=== PATIENT | male | born 1955 | race Caucasian/White ===

== ENCOUNTER 2021-08-27 02:35 | Observation (INO) | payer MEDICARE, BC ==
[~2021-08-27] VITALS: Ht 182.9 cm; Wt 123.3 kg
[~2021-08-27 02:35] MED LIST: ASPIR-LOW81 MG PO; AVAPRO300 M1 PO; AVAPRO300 MG PO; FERROUS SU325 MG/TAB PO; FOLIC ACID 40400 MCG PO; FOLIC ACID PO; IRON325 M1 PO; LEXAPRO 10MG10 MG PO; NASACORT AQ N16.5 GM NS; NORVASC 10MG10 MG PO; NORVASC10 MG PO; VITAMIN C BUFF500 MG PO; VITAMIN C250250 MG PO; ZIAC 10/6.25M1 UDTAB PO
[2021-08-27 03:13] LABS: BASO # 0.1 K/mm3 (0.0-0.2); BASO % 0.7 % (0.0-2.0); EOS # 0.2 K/mm3 (0.0-0.7); EOS % 1.4 % (0.0-4.0); GRAN # 9.8 K/mm3 (1.4-6.5); GRAN % 70.5 % (42.2-75.2); HEMATOCRIT 45.3 % (42.0-52.0); HEMOGLOBIN 15.2 g/dl (13.5-18.0); LYMPH # 2.4 K/mm3 (1.2-3.4); LYMPH % 17.6 % (20.0-51.0); MEAN CELL VOLUME 87 fl (80.0-100.0); MEAN CORPUSCULAR HEMOGLOBIN 29 pg (27-31); MEAN CORPUSCULAR HGB CONC 34 g/dl (33.0-37.0); MONO # 1.3 K/mm3 (0.1-0.6); MONO % 9.4 % (1.7-9.3); PLATELET COUNT 406 K/mm3 (130-400); RED BLOOD COUNT 5.21 M/mm3 (4.20-5.60); REDCELL DISTRIBUTION WIDTH-CV 12.9 % (11.5-14.5)
[2021-08-27] MEDS ORDERED: K-DUR20 MEQ PO ×2 (03:21→03:22)
[2021-08-27] MEDS ORDERED: COZAAR100 MG PO (03:23)
[2021-08-27] MEDS ORDERED: SYNTHROID0.05 MG/TA PO (03:24)
[2021-08-27] MEDS ORDERED: HCTZ12.5TAB PO (03:25)
[2021-08-27 03:29] LABS: ALBUMIN 3.7 gm/dL (3.4-4.8); C-REACTIVE PROTEIN 2.2 mg/dL (0.00-0.50); CALCIUM 9.5 mg/dL (8.4-10.2); CREATININE, serum 1.09 mg/dL (0.72-1.25); POTASSIUM 3.9 mmol/L (3.5-4.5); TOTAL PROTEIN 7.8 gm/dL (6.2-8.1)
[2021-08-27 04:30] VITALS: BP 123/76; PULSE 74; TEMP 97.5
--- NOTE | 2021-08-27 07:30 | NUR ---
PT ARRIVED TO MEDICAL UNIT AT 0430HRS TO [id number]. PT A&O X4, VSS, O2 RA. PT DENIES PAIN, PALPITATIONS, SOB, N/V/D OR DIZZINESS. ADMISSSION ASSESSMENT COMPLETE. MED REC COMPLETE. PT ORIENTED TO MEDICAL FLOOR, ROOM & HOSPITAL POLICIES. POC DISCUSSED WITH PT. PT VERBALIZED UNDERSTANDING. ALL QUESTIONS AND CONCERNS ADDRESSED. PT EXPRESSED NO ADDITIONAL NEEDS AT THIS TIME. CALL LIGHT WITHIN REACH.
[2021-08-27 08:05] VITALS: BP 138/76; PULSE 73; TEMP 98.4
--- NOTE | 2021-08-27 10:24 | NUR ---
HepXa 1.20 , stopping for 2 hours and then rechecking level at 1230
--- NOTE | 2021-08-27 10:52 | NUR ---
Assessment completed, alert/oriented, vital signs stable, denies pain, stated left leg is just tight and uncomfortable, 2-3+ edema to left leg/ NO redness warmth noted, lungs CTA/ no resp.difficulty noted, heparin gtt on hold d/t high hepXA level, heart RRR, lungs CTA/ no resp.difficulty noted, LLE dopper ordered, denies needs at this time, will continue to monitor
--- NOTE | 2021-08-27 11:34 | NUR ---
Sw met with the pt who stated his preference to return home once medically stable. The pt states his NK is his son, Cory [phone]. The pt reports he lives at home alone and is independent on all ADLs and does not use any DME. The pt pcp is romero Barnes and gets his medications from [facility]. The pt reports he has a DPOA-HC. No other needs stated at this time. sw to await further recommendation and follow up. d/c: home.
[2021-08-27 13:00] VITALS: BP 117/73; PULSE 80; TEMP 97.8
[2021-08-27 17:35] VITALS: BP 139/79; PULSE 78; TEMP 98.3
[2021-08-27 19:40] VITALS: BP 137/82; PULSE 90; TEMP 98.5
[2021-08-27 23:30] VITALS: BP 142/78; PULSE 89; TEMP 98
[2021-08-28 04:41] VITALS: BP 133/77; PULSE 78; TEMP 98
--- NOTE | 2021-08-28 07:52 | NUR ---
ASSESSMENT COMPLETE FOR THIS SHIFT. PT COOPERATIVE WITH CARES. PT RESTING IN BED, "JUST HOPING TO GET SOME SLEEP TONIGHT." PT COMPLAINED ON LEG PAIN. PT GIVEN TYLENOL AND ROXICODONE FOR PAIN. PT FELT PAIN WAS HELPED AND HE COULD GET SOME NEEDED REST. PT DENIES PALPITATIONS, SOB OR DIZZINESS. PT CONTINUES ON HEPARIN DRIP WITH NO RATE CHANGE NEEDED BASED ON Xa LAB RESULTS. PT STATES HE HAS NO OTHER NEEDS AT THIS TIME. CALL LIGHT WITHIN REACH.
[2021-08-28 08:26] LABS: BASO # 0.1 K/mm3 (0.0-0.2); BASO % 0.7 % (0.0-2.0); EOS # 0.1 K/mm3 (0.0-0.7); EOS % 0.9 % (0.0-4.0); GRAN # 8.8 K/mm3 (1.4-6.5); GRAN % 72.2 % (42.2-75.2); HEMATOCRIT 40.4 % (42.0-52.0); HEMOGLOBIN 13.6 g/dl (13.5-18.0); LYMPH # 1.9 K/mm3 (1.2-3.4); LYMPH % 15.3 % (20.0-51.0); MEAN CELL VOLUME 87 fl (80.0-100.0); MEAN CORPUSCULAR HEMOGLOBIN 29 pg (27-31); MEAN CORPUSCULAR HGB CONC 34 g/dl (33.0-37.0); MEAN PLATELET VOLUME 9.6 fl (7.4-10.4); MONO # 1.3 K/mm3 (0.1-0.6); MONO % 10.6 % (1.7-9.3); PLATELET COUNT 362 K/mm3 (130-400); RED BLOOD COUNT 4.64 M/mm3 (4.20-5.60); REDCELL DISTRIBUTION WIDTH-CV 13.2 % (11.5-14.5)
[2021-08-28 08:33] VITALS: BP 130/82; PULSE 81; TEMP 97.5
--- NOTE | 2021-08-28 08:40 | NUR ---
PT L LEG HAS INC SWELLING, RED, EDEMETOUS 2+, PT ASSESSMENT PERFORMED, REPORTS 7/10 PAIN IN THAT LEG, TYLENOL GIVEN WITH OTHER PAIN MEDICATIONS, CALL LIGHT WITHIN REACH, PT VOIDING WITH URINAL, NO OTHER NEEDS
[2021-08-28 08:44] LABS: ALBUMIN 3.3 gm/dL (3.4-4.8); CREATININE, serum 1.03 mg/dL (0.72-1.25); MAGNESIUM 2.1 mg/dL (1.6-2.6); PHOSPHOROUS 3.5 mg/dL (2.3-4.7); POTASSIUM 4.2 mmol/L (3.5-4.5)
[2021-08-28 11:46] VITALS: BP 126/76; PULSE 78; TEMP 97.5
--- NOTE | 2021-08-28 12:01 | NUR ---
First visit from the bakery helper. NO needs right now.
[2021-08-28] MEDS ORDERED: ELIQUIS 5MG PO (12:34)
--- NOTE | 2021-08-28 14:24 | NUR ---
DISCHARGE EDUCATION PROVIDED, PT PLEASANT, AOX4, IV'S REMOVED, PT ESCORTED OUT VIA WHEELCHAIR, NO OTHER NEEDS
== END 2021-08-28 14:30 | disposition home or self-care (01) ==
LOC: COL.ER 02:35 → MEDICAL 03:35
PROVIDERS: Emergency Medicine; ADMIT Internal Medicine
DX: I82.4Z2 Acute embolism and thrombosis of unspecified deep veins of left distal lower extremity (principal); R52 Pain, unspecified; I10 Essential (primary) hypertension; E03.9 Hypothyroidism, unspecified; F32.A Depression, unspecified; Z96.653 Presence of artificial knee joint, bilateral; Z79.82 Long term (current) use of aspirin; Z79.899 Other long term (current) drug therapy; Z79.1 Long term (current) use of non-steroidal anti-inflammatories (NSAID)
CPT/HCPCS: G0378; J1644; J3370; J7030; J7050

== ENCOUNTER 2022-01-08 07:54 | Day surgery (SDC) | payer MEDICARE, BC ==
[2022-01-08] VITALS (8 sets, daily range): BP systolic 109–130; BP diastolic 67–105; PULSE 54–96; TEMP 98.6
[~2022-01-08] VITALS: Ht 182.9 cm; Wt 119.4 kg
[~2022-01-08 07:54] MED LIST changes: +COZAAR100 MG PO; +ELIQUIS 5MG PO; +HCTZ12.5TAB PO; +K-DUR20 MEQ PO; +SYNTHROID0.05 MG/TA PO
[2022-01-08] MEDS ORDERED: ELIQUIS 5MG PO (08:08)
[2022-01-08] MEDS ORDERED: MOVE FREE JOIN1 EACH PO (08:10)
[2022-01-08] MEDS ORDERED: TOPROL XL100 MG PO (08:10)
[2022-01-08] MEDS ORDERED: NASACORT OTC NS (08:10)
[2022-01-08] MEDS ORDERED: COMPLETE SENIOR1 TA1 PO (08:11)
[2022-01-08 08:39] LABS: HEMATOCRIT 45.8 % (42.0-52.0); HEMOGLOBIN 15.6 g/dl (13.5-18.0); MEAN CELL VOLUME 86 fl (80.0-100.0); MEAN CORPUSCULAR HEMOGLOBIN 29 pg (27-31); MEAN CORPUSCULAR HGB CONC 34 g/dl (33.0-37.0); MEAN PLATELET VOLUME 8.9 fl (7.4-10.4); PLATELET COUNT 361 K/mm3 (130-400); REDCELL DISTRIBUTION WIDTH-CV 12.9 % (11.5-14.5)
[2022-01-08 08:48] LABS: INR 1.5 (0.8-3.0); PROTHROMBIN TIME 17.3 SECONDS (9.7-12.8)
[2022-01-08 08:51] LABS: PARTIAL THROMBOPLASTIN TIME 36.4 SECONDS (26.0-37.0)
[2022-01-08 08:54] LABS: CALCIUM 9.1 mg/dL (8.4-10.2); CREATININE, serum 0.98 mg/dL (0.72-1.25); POTASSIUM 3.9 mmol/L (3.5-4.5)
[2022-01-08 09:15] LABS: THYROID STIMULATING HORMONE 3.695 uIU/mL (0.350-4.940)
[2022-01-08] MEDS ORDERED: TAMBOCOR50 MG PO (11:03)
[2022-01-08] MEDS ORDERED: TOPROL XL 25MG25 MG PO (11:03)
--- NOTE | 2022-01-08 11:35 | NUR ---
DC instructions reviewed with pt and daughter in law. Both express understanding. Initial dose of flecanide given prior to discharge per instructions by Dr Jameson. Pt stable on feet in room. He has tolerated PO without issue. IV DC'd. Pt assisted out by wheelchair to [employer]'s car.
== END 2022-01-08 11:35 | disposition home or self-care (01) ==
LOC: COL.CAR 07:54
PROVIDERS: Internal Medicine Adult Congenital Heart Disease
DX: I48.19 Other persistent atrial fibrillation (principal); I10 Essential (primary) hypertension; G47.33 Obstructive sleep apnea (adult) (pediatric); Q85.8 Other phakomatoses, not elsewhere classified; Z86.718 Personal history of other venous thrombosis and embolism; Z79.01 Long term (current) use of anticoagulants; Z79.899 Other long term (current) drug therapy
CPT/HCPCS: J2704